=== PATIENT | female | born 1965 | race Hispanic/Latino ===

== ENCOUNTER 2017-11-14 18:09 | Emergency (ER) | payer MEDICARE ==
[2017-11-14] MEDS ORDERED: NACL 0.9% 500 ML 500 ML IV ONE (19:00)
[2017-11-14] MEDS ORDERED: TYLENOL PO ONE (19:05)
[2017-11-14 19:34] LABS: Hemoglobin 9.5 gm/dl (10.1-14.3); Mean Corpuscular HGB Conc 33 % (30-34); Mean Corpuscular Hemoglobin 27 pg (28-32); Mean Corpuscular Volume 84 fl (79-97); Platelet Count 191 K/mm3 (140-440); Red Blood Count 3.46 M/mm3 (3.65-5.03); Red Cell Distribution Width 17.9 % (13.2-15.2)
[2017-11-14 19:42] LABS: INR 0.95 (0.87-1.13); Lymphocytes % (Auto) 22.4 % (13.4-35.0)
[2017-11-14 19:43] LABS: Eosinophils % (Auto) 0.1 % (0.0-4.3); Lymphocytes # (Auto) 0.7 K/mm3 (1.2-5.4); Monocytes # (Auto) 0.3 K/mm3 (0.0-0.8); Monocytes % (Auto) 10.7 % (0.0-7.3)
[2017-11-14 19:56] LABS: Alanine Aminotransferase 20 units/L (7-56); BUN/Creatinine Ratio 16; Blood Urea Nitrogen 8 mg/dL (7-17); Hemolysis Index 2
[2017-11-14 19:57] LABS: Bilirubin,Urine NEG (Negative); Blood,Urine NEG (Negative); Color,Urine Yellow (Yellow); Protein,Urine <15 mg/dL mg/dL (Negative); Urobilinogen,Urine < 2.0 mg/dL (<2.0); WBC,Urine < 1.0 /HPF (0.0-6.0)
[2017-11-14 20:04] LABS: Amphetamine Screen,Urine PRESUMPTIVE NEGATIVE; Cannabinoid Screen,Urine PRESUMPTIVE NEGATIVE; Cocaine Screen,Urine PRESUMPTIVE NEGATIVE; Opiate Screen,Urine PRESUMPTIVE NEGATIVE
[2017-11-14] MEDS ORDERED: MAGNESIUM SULFATE 2GM/50ML 2 GM/50 ML BAG IV ONE (20:06)
[2017-11-14] MEDS ORDERED: NACL 0.9% 1000 ML 1,000 ML IV ONE (20:06)
[2017-11-14 20:12] LABS: Benzodiazepines Screen,Urine PRESUMPTIVE POSITIVE; Methadone Screen,Urine PRESUMPTIVE POSITIVE
--- NOTE | 2017-11-14 20:18 | XRay Report ---
FINAL REPORT PROCEDURE: XR CHEST 1V AP TECHNIQUE: Chest radiograph anteroposterior view. CPT 79528 HISTORY: possible Sepsis COMPARISON: No prior studies are available for comparison. FINDINGS: Heart: Normal. Mediastinum/Vessels: Normal. Lungs/Pleural space: Normal. Bony thorax: No acute osseous abnormality. Life support devices: None. IMPRESSION: No acute cardiopulmonary abnormality.
[2017-11-14] MEDS ORDERED: ATIVAN PO ONE (20:23)
--- NOTE | 2017-11-14 20:23 | Cat Scan Report ---
FINAL REPORT EXAM: CT HEAD/BRAIN WO CON HISTORY: syncope vs seizure TECHNIQUE: Noncontrast CT images of the brain were performed Total exam DLP 1051.96 mGy-cm Comparison: None FINDINGS: Normal villa-white differentiation without midline shift or mass effect. There is no acute extra-axial fluid collection or intraparenchymal blood products. Ventricles and cisterns have normal size and configuration. Right maxillary sinus mucosal thickening. Mild scattered ethmoid air cell mucosal thickening. No calvarial abnormality. Orbital cones and apices are within normal limits. IMPRESSION: No acute intracranial abnormality. Right maxillary sinus mucosal thickening.
[2017-11-14] MEDS ORDERED: TORADOL IV ONE (20:24)
[2017-11-14] MEDS ORDERED: ZOFRAN IV ONE (22:15)
[2017-11-14] MEDS ORDERED: NEURONTIN PO ONE (23:36)
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
[2017-11-15] MEDS ORDERED: TESSALON PERLES PO ONE (00:03)
[2017-11-15] MEDS ORDERED: ZITHROMAX PO ONE (00:03)
[2017-11-15] MEDS ORDERED: ROBAXIN PO ONE (00:15)
[2017-11-15] MEDS ORDERED: TYLENOL PO ONE ×2 (00:25→08:23)
[2017-11-15] MEDS ORDERED: TYLENOL ONE ×2 (00:27→08:15)
[2017-11-15 05:30] VITALS: BP 97/54
== END 2017-11-15 08:28 ==
LOC: ED 18:09
DX: F17.200 Nicotine dependence, unspecified, uncomplicated (principal); Z88.8 Allergy status to other drugs, medicaments and biological substances; K21.9 Gastro-esophageal reflux disease without esophagitis; R53.1 Weakness
CPT/HCPCS: 36415; 70450; 71045; 80053; 80307; 81001; 82140; 82805; 83735; 84484; 85025; 85610; 87040; 87086; 87400; 93005; 93010; 96361; 96374; 96375; 99285; J1885; J2405; J3475; J7030; J7040